=== PATIENT | male | born 1995 | race Hispanic/Latino ===

== ENCOUNTER 2019-10-08 19:51 | Emergency (ER) | payer BC ==
[2019-10-08 20:03] VITALS: BP 113/71
[2019-10-08 20:28] LABS: Basophils # (Auto) 0.1 K/mm3 (0.0-0.1); Basophils % (Auto) 0.5 % (0.0-1.8); Eosinophils % (Auto) 0.3 % (0.0-4.3); Hematocrit 41.6 % (35.5-45.6); Hemoglobin 14.1 gm/dl (11.8-15.2); Lymphocytes # (Auto) 1.8 K/mm3 (1.2-5.4); Lymphocytes % (Auto) 14.3 % (13.4-35.0); Mean Corpuscular HGB Conc 34 % (32-34); Mean Corpuscular Volume 92 fl (84-94); Monocytes # (Auto) 0.5 K/mm3 (0.0-0.8); Monocytes % (Auto) 3.8 % (0.0-7.3); Platelet Count 202 K/mm3 (140-440); Red Blood Count 4.53 M/mm3 (3.65-5.03); Red Cell Distribution Width 12.9 % (13.2-15.2)
[2019-10-08 20:38] LABS: Bilirubin,Urine NEG (Negative); Blood,Urine LG (Negative); Color,Urine Yellow (Yellow); Mucus,Urine 3+ /HPF; Protein,Urine <15 mg/dL mg/dL (Negative); Urobilinogen,Urine < 2.0 mg/dL (<2.0)
[2019-10-08 20:51] LABS: Alanine Aminotransferase 28 units/L (7-56); Albumin 4.3 g/dL (3.9-5); BUN/Creatinine Ratio 11; Blood Urea Nitrogen 11 mg/dL (9-20); Hemolysis Index 6
[2019-10-08] MEDS ORDERED: FAMOTIDINE 20 MG/2 ML INJ IV ONE (20:52)
[2019-10-08] MEDS ORDERED: KETOROLAC 30 MG/1 ML INJ IV ONE (20:52)
[2019-10-08] MEDS ORDERED: ONDANSETRON 4 MG/2 ML INJ IV ONE (20:52)
--- NOTE | 2019-10-08 21:58 | Cat Scan Report ---
CT ABDOMEN AND PELVIS WITHOUT CONTRAST INDICATION: LLQ pain; Hematuria. TECHNIQUE: Axial CT images were obtained through the abdomen and pelvis without IV contrast. All CT scans at [facility] location are performed using CT dose reduction for ALARA by means of automated exposure control. COMPARISON: None available. FINDINGS: LOWER CHEST: No significant abnormality. LIVER: No significant abnormality. GALLBLADDER: No significant abnormality. BILE DUCTS: No significant abnormality. PANCREAS: No significant abnormality. SPLEEN: No significant abnormality. ADRENALS: No significant abnormality. RIGHT KIDNEY and URETER: 3 tiny nonobstructing 2 mm right intrarenal stones. No hydronephrosis. LEFT KIDNEY and URETER: Nonobstructing 2 mm left UVJ stone series 2 image 155 with mild left hydroure teronephrosis. STOMACH and SMALL BOWEL: No significant abnormality. COLON: No significant abnormality. APPENDIX: No significant abnormality. PERITONEUM: Trace amount of free pelvic fluid. No free air. No fluid collection. LYMPH NODES: No significant adenopathy. AORTA and ARTERIES: No significant abnormality. IVC and VEINS: No significant abnormality. URINARY BLADDER: No significant abnormality. REPRODUCTIVE ORGANS: No significant abnormality. ADDITIONAL FINDINGS: None. SKELETAL SYSTEM: No significant abnormality. IMPRESSION: 1. Obstructing 2 mm left UVJ stone with mild left hydronephrosis. 2. Right nephrolithiasis. Signer Name: Hernandez Kincaid MD Signed: 10/08/2019 9:54 PM Workstation Name: [id number]
--- NOTE | 2019-10-08 22:26 | Emergency Department Report ---
ED Abdominal Pain HPI - General Chief Complaint: Abdominal Pain Stated Complaint: ABD PAIN, VOMITTING Source: patient Mode of arrival: Ambulatory Limitations: No Limitations - History of Present Illness Initial Comments: Patient is a 24-year-old white male with a history of chronic marijuana smoking habit presents to the ED with acute onset persistent left lower quadrant abdomi nal pain with persistent intermittent nausea and vomiting for the last 2 days. Patient states that the pain radiates to the left flank intermittently. Patient said that she was initially evaluated for the same symptoms over 24 hours ago and was discharged home on Bentyl, Pepcid and Zofran but he has not been able to obtain this medication because "I have to wait until the payday to obtain these medications". Patient states that he was advised that the etiology of his symptoms is because of heavy marijuana smoking. Patient states that in the last 12 hours he has had multiple episodes of nausea and vomiting and that the left lower quadrant pain has worsened. Patient denies testicular pain, dizziness, fever, chills, diarrhea, hematuria, hematochezia, chest pain, shortness of breath or low back pain and penile discharge or dysuria. MD Complaint: abdominal pain, other (nausea and vomiting) -: Sudden, days(s) (2) Location: LLQ Radiation: LLQ, L flank Migration to: no migration Severity scale (0 -10): 8 Quality: aching, sharp Consistency: intermittent Improves With: nothing Worsens With: nothing Associated Symptoms: denies other symptoms, nausea, vomiting. denies: diarrhea, fever, chills, constipation, dysuria, hematemesis, hematochezia, melena, hematuria, anorexia, other - Related Data Previous Rx's Medication Instructions Recorded Last Taken Type Ketorolac [Toradol] 10 mg PO Q8H PRN #20 tablet 10/08/19 Unknown Rx Ondansetron [Zofran Odt] 4 mg PO Q6HR PRN #21 tab.rapdis 10/08/19 Unknown Rx Tamsulosin [Flomax] 0.4 mg PO QDAY #10 cap 10/08/19 Unknown Rx Allergies Allergy/AdvReac Type Severity Reaction Status Date / Time No Known Allergies Allergy Unverified 10/08/19 20:03 ED Review of Systems ROS: Stated complaint: ABD PAIN, VOMITTING Other details as noted in HPI Constitutional: denies: chills, fever Eyes: denies: eye pain, eye discharge, vision change ENT: denies: ear pain, throat pain Respiratory: denies: cough, shortness of breath, wheezing Cardiovascular: denies: chest pain, palpitations Endocrine: no symptoms reported Gastrointestinal: abdominal pain, nausea, vomiting. denies: diarrhea Genitourinary: denies: urgency, dysuria Musculoskeletal: denies: back pain, joint swelling, arthralgia Skin: denies: rash, lesions Neurological: denies: headache, weakness, paresthesias Psychiatric: denies: anxiety, depression Hematological/Lymphatic: denies: easy bleeding, easy bruising ED Past Medical Hx - Past Medical History Previous Medical History?: No - Surgical History Past Surgical History?: No - Social History Smoking Status: Current Some Day Smoker Substance Use Type: Marijuana - Medications Home Medications: Home Medications Medication Instructions Recorded Confirmed Last Taken Type Ketorolac [Toradol] 10 mg PO Q8H PRN #20 tablet 10/08/19 Unknown Rx Ondansetron [Zofran Odt] 4 mg PO Q6HR PRN #21 tab.rapdis 10/08/19 Unknown Rx Tamsulosin [Flomax] 0.4 mg PO QDAY #10 cap 10/08/19 Unknown Rx ED Physical Exam - General Limitations: No Limitations General appearance: alert, in no apparent distress - Head Head exam: Present: atraumatic, normocephalic, normal inspection - Eye Eye exam: Present: normal appearance, PERRL, EOMI Pupils: Present: normal accommodation - ENT ENT exam: Present: normal exam, normal orophraynx, mucous membranes moist, TM's normal bilaterally, normal external ear exam - Neck Neck exam: Present: normal inspection, full ROM - Respiratory Respiratory exam: Present: normal lung sounds bilaterally. Absent: respiratory distress, wheezes, rales, rhonchi, chest wall tenderness, accessory muscle use, decreased breath sounds, prolonged expiratory - Cardiovascular Cardiovascular Exam: Present: regular rate, normal rhythm, normal heart sounds. Absent: systolic murmur, diastolic murmur, rubs, gallop - GI/Abdominal GI/Abdominal exam: Present: soft, tenderness (LLQ tenderness, no guarding or rebound), normal bowel sounds. Absent: guarding, rebound, hyperactive bowel sounds, hypoactive bowel sounds, organomegaly, mass, pulsatile mass - Extremities Exam Extremities exam: Present: normal inspection, full ROM, normal capillary refill - Back Exam Back exam: Present: normal inspection, full ROM - Neurological Exam Neurological exam: Present: alert, oriented X3, CN II-XII intact, normal gait, reflexes normal - Psychiatric Psychiatric exam: Present: normal affect, normal mood - Skin Skin exam: Present: warm, dry, intact, normal color. Absent: rash ED Course Vital Signs 10/08/19 10/08/19 20:01 20:08 Temperature 97.9 F 97.9 F Pulse Rate 63 60 Respiratory 18 18 Rate Blood Pressure 113/71 113/71 O2 Sat by Pulse 99 99 Oximetry ED Medical Decision Making - Lab Data Result diagrams: 10/08/19 20:17 10/08/19 20:17 - Radiology Data Radiology results: report reviewed, image reviewed Findings [address] [address] Cat Scan Report Signed Patient: DANDY TATE JR MR#: [id number] : 1995 Acct:[id number] Age/Sex: 24 / M ADM Date: 10/08/19 Loc: ED Attending Dr: Ordering Physician: LIZBETH CHRISTIAN Date of Service: 10/08/19 Procedure(s): CT abdomen pelvis wo con Accession Number(s): [id number] cc: LIZBETH CHRISTIAN CT ABDOMEN AND PELVIS WITHOUT CONTRAST INDICATION: LLQ pain; Hematuria. TECHNIQUE: Axial CT images were obtained through the abdomen and pelvis without IV contrast. All CT scans at this location are performed using CT dose reduction for ALARA by means of automated exposure c ontrol. COMPARISON: None available. FINDINGS: LOWER CHEST: No significant abnormality. LIVER: No significant abnormality. GALLBLADDER: No significant abnormality. BILE DUCTS: No significant abnormality. PANCREAS: No significant abnormality. SPLEEN: No significant abnormality. ADRENALS: No significant abnormality. RIGHT KIDNEY and URETER: 3 tiny nonobstructing 2 mm right intrarenal stones. No hydronephrosis. LEFT KIDNEY and URETER: Nonobstructing 2 mm left UVJ stone series 2 image 155 with mild left hydroureteronephrosis. STOMACH and SMALL BOWEL: No significant abnormality. COLON: No significant abnormality. APPENDIX: No significant abnormality. PERITONEUM: Trace amount of free pelvic fluid. No free air. No fluid collection. LYMPH NODES: No significant adenopathy. AORTA and ARTERIES: No significant abnormality. IVC and VEINS: No significant abnormality. URINARY BLADDER: No significant abnormality. REPRODUCTIVE ORGANS: No significant abnormality. ADDITIONAL FINDINGS: None. SKELETAL SYSTEM: No significant abnormality. IMPRESSION: 1. Obstructing 2 mm left UVJ stone with mild left hydronephrosis. 2. Right nephrolithiasis. Signer Name: Hernandez Kincaid MD Signed: 10/08/2019 9:54 PM Workstation Name: [id number] Transcribed By: TL Dictated By: Hernandez Kincaid MD Electronically Authenticated By: Hernandez Kincaid MD Signed Date/Time: 10/08/192153 DD/ 50 TD - Medical Decision Making This is a 24-year-old male who presented to the ED with nausea, vomiting, left lower quadrant abdominal pain that radiates to the left flank for the last 2 days. The ED, patient is alert and oriented 3 in destruction and distress. Patient was treated for pain with Toradol and also treated for nausea and vomiting with Zofran IV. Lab test results were reviewed and showed acute leukocytosis of 12,300, and lipase levels of 188, hypokalemia of 3.[address] and significant blood in the urine. Abdomen pelvis CT scan without contrast shows nonobstructing 2 mm left UVJ stone with mild left hydronephrosis and multiple right nephrolithiasis. The rest of the imaging results are unremarkable. On reevaluation, patient's pain and nausea and vomiting over controlled with medications. Patient was also treated in the ED with Flomax and was discharged home on pain medications, antiemetics and Flomax and was advised to follow-up with the his urologist at his home town in [place], [place] in 3-5 days for reevaluation or return to the ED immediately if symptoms get worse. Patient was also encouraged to quit smoking marijuana. Patient was otherwise advised t o follow-up with his primary care physician in 7-10 days for reevaluation. - Differential Diagnosis Kidney stones; pancreatitis; UTI; Colitis; GERD; Gastritis Critical care attestation.: If time is entered above; I have spent that time in minutes in the direct care of this critically ill patient, excluding procedure time. ED Disposition Clinical Impression: Abdominal pain, LLQ (left lower quadrant), Kidney stone on left side, Nausea and vomiting in adult Acute pancreatitis Qualifiers: Pancreatitis type: idiopathic Acute pancreatitis complication: unspecified Qualified Code(s): K85.00 - Idiopathic acute pancreatitis without necrosis or infection Disposition: TO HOME OR SELFCARE Is pt being admited?: No Does the pt Need Aspirin: No Condition: Stable Instructions: Kidney Stones (ED), Flank Pain (ED), Acute Nausea and Vomiting (ED), Pancreatitis (ED) Additional Instructions: Maintain a clear liquid diet for 12-24 hours, take medications and follow up with your urologist in [place], [place] in 3-5 days for reevaluation. Return to the ED immediately if symptoms get worse. Otherwise follow-up with your primary care physician in 7-10 days for reevaluation. Prescriptions: Tamsulosin [Flomax] 0.4 mg PO QDAY #10 cap Ketorolac [Toradol] 10 mg PO Q8H PRN #20 tablet PRN Reason: Pain Ondansetron [Zofran Odt] 4 mg PO Q6HR PRN #21 tab.rapdis PRN Reason: Nausea Referrals: PRIMARY CARE, [Primary Care Provider] - 3-5 Days Time of Disposition: 22:37 Print Language: PERSIAN
[2019-10-08] MEDS ORDERED: TAMSULOSIN 0.4 MG CAP PO ONE (22:44)
[2019-10-08] MEDS ORDERED: PROMETHAZINE 25 MG TAB PO ONE (22:44)
== END 2019-10-08 23:30 | disposition home or self-care (01) ==
LOC: ED 19:51
DX: N20.0 Calculus of kidney (principal); K85.90 Acute pancreatitis without necrosis or infection, unspecified; F17.200 Nicotine dependence, unspecified, uncomplicated; F12.10 Cannabis abuse, uncomplicated; Z79.899 Other long term (current) drug therapy
CPT/HCPCS: 36415; 74176; 80053; 81001; 83690; 85025; 96374; 96375; 99284; J1885; J2405; Q0169